=== PATIENT | female | born 1965 | race Caucasian/White ===

== ENCOUNTER 2017-09-01 14:51 | Inpatient (IN) | payer OTHER ==
--- NOTE | 2017-09-01 14:59 | EDPHY ---
HPI/HX/ROS/PE/MDM Narrative: CHIEF COMPLAINT: Altered mental status, lethargic, found down HISTORY OF PRESENT ILLNESS: The patient is a 51 y/o female with a history of T12 paraplegia (in a wheelchair ) arriving via EMS for altered mental status and was last seen normal at least 2 days ago. Her neighbors found her face down in her bed this afternoon and called EMS. EMS reports that she was able to nod yes and no to certain questions. She is currently moaning and complaining of stomach pain. REVIEW OF SYSTEMS: Unable to obtain due to patient's altered mental status. PAST MEDICAL HISTORY: Paraplegia at T12 (wheelchair dependent), chronic constipation, neurogenic bladder, neuropathy, depression SOCIAL HISTORY: Lives in [place]. (Son present at bedside later in patients course.) VITAL SIGNS Reviewed by me. GENERAL: Lethargic, responding to pain, answers to yes and no questions, follows simple commands. Diaper full of feces and urine. HEENT: Atraumatic. Eyes: Anisocoria with left larger than right, crusty yellow discharge from the right eye, no nystagmus. No icterus. Mouth: very dry mucous membranes. No erythema or lesions. Neck: No meningitis. Nontender to palpation. No adenopathy. LUNGS: Diminished breath sounds to auscultation bilaterally, no wheezes, rhonchi or rales. CARDIAC: Tachycardic and regular, no rubs, murmurs or gallops. ABDOMEN: Fullness in lower abdomen from symphysis pubis to above level of umbilicus associated with discomfort. Large midline abdominal incision. Soft, nondistended, bowel sounds normal. BACK: No CVA tenderness. EXTREMITIES: Flaccid paralysis of lower extremities. Mottled skin in lower extremities. No trauma. NEURO: Diminished certified wellness program manager on left, cranial nerves II through XII are intact. SKIN: Pressure ulcer on right rib cage, pressure ulcer starting on left inguinal canal, skin break down on right sacral/buttock area. PSYCHIATRIC: Lethargic, no agitation. Portions of this note were transcribed by a emergency medical technician. I personally performed a history, physical exam, medical decision making, and confirmed accuracy of information the transcribed note. ED Course: The patient is a 51 y/o female with a history of T12 paraplegia (in a wheelchair ) arriving via EMS for altered mental status and was last seen normal at least 2 days ago. On exam she has extremely dry mucous membranes and fullness in her lower abdomen to above the level of the umbilicus associated with discomfort. She is moaning but is able to follow simple commands. She also has diminished certified wellness program manager strength on the left and flaccid paralysis of her lower extremities. In addition to these findings she also has multiple pressure ulcers. EKG, I-Stat, labs, chest x-ray, head and abdominal CT ordered. 1L IV NS given. 1451: I met EMS upon arrival. 1455: Procedure: Limited pelvic ultrasound was conducted for palpable mass. The bladder was visualized and did not reveal an anechoic area outside of the adjacent urinary bladder. Bladder was distended with urine. The study was felt to be negative for free intraperitoneal fluid The procedure was performed by myself, Dr. Javed. 1503: I-Stat preformed, BUN of 136, creatinine 4.6, elevated H&H. 1535: 12-LEAD EKG: Please see the full report in [facility]. My interpretation : Normal sinus rhythm with a rate of 94. Aggressive IV hydration was started. Patient's ALT and AST are elevated, CPK is 963. CT scan of the head and CT scan of the abdomen pelvis demonstrate no acute hemorrhage or traumatic findings. Patient does have some mild hydronephrosis bilaterally perhaps secondary to the patient's neurogenic bladder and reflux. 1656: Consulted with hospitalist service, Dr. Mckee accepts admission of this patient. 1700: Consulted with Dr. Barrios, fundraising specialist, regarding this patient. He is requesting that IR place a temporary catheter so dialysis can begin tonight if needed. 1725: Reassessed patient and discussed imaging and laboratory findings with patient and her son. I have also discussed plan for admission which they are comfortable with. Critical care time spent by me, Dr. Javed, exclusively with this patient was 45 minutes, exclusive of PA time and exclusive of procedures. The organ system at risk was renal and I gave IVF, made arrangements for temporary dialysis catheter to be placed, consulted with Nephrology, and transferred her to the ICU to prevent worsening of the patients condition. MDM: After the history was obtained and physical exam performed, the following differential for the patient's altered mental status was considered included but was not limited to hypoglycemia, electrolyte disturbances, intracranial hemorrhage, tumor, drug or alcohol intoxication, stroke, or TIA. - Data Points Imaging Results: Imaging Impressions Abdomen/Pelvis CT 09/01/17 15:09 Impression: 1. Fecal impaction. 2. Mild bilateral hydronephrosis. The patient reportedly had a large volume of urine in the bladder that drained after the Couch was placed suggesting this is related to reflux. 3. Additional findings as above. Findings discussed with Iva Javed MD, 09/01/2017 at 16:05. Attention: This CT examination is specifically designed to evaluate patients who are clinically suspected of having acute obstructive uropathy. This examination does not use radiographic contrast, and as such, provides only a limited evaluation of the abdomen, pelvis and retroperitoneum. If there is further clinical suspicion for pathological conditions other than obstructive uropathy, a complete CT evaluation of the abdomen and pelvis utilizing intravenous and oral contrast should be considered. Imaging: Discussed imaging studies w/ digester Radiologist, I viewed and interpreted images myself Laboratory Results: Laboratory Results 09/01/17 15:05 09/01/17 15:05 09/01/17 09/01/17 09/01/17 15:14 15:05 15:05 WBC RBC Hgb POC Hgb Hct POC Hct MCV MCH MCHC RDW Plt Count MPV Neut % (Auto) Lymph % (Auto) Bartholomew % (Auto) Eos % (Auto) Baso % (Auto) Nucleat RBC Rel Count Absolute Neuts (auto) Absolute Lymphs (auto) Absolute Monos (auto) Absolute Eos (auto) Absolute Basos (auto) Absolute Nucleated RBC Immature Gran % Immature Gran # PT INR APTT POC Sodium Sodium 158 mEq/L H mEq/L 159 mEq/L H mEq/L (135-145) (135-145) POC Potassium Potassium 4.5 mEq/L mEq/L 4.4 mEq/L mEq/L (3.5-5.2) (3.5-5.2) POC Chloride Chloride 120 mEq/L H mEq/L 121 mEq/L H mEq/L (97-110) (97-110) Carbon Dioxide 14 mEq/l L mEq/l 17 mEq/l L mEq/l (22-31) (22-31) Anion Gap 24 mEq/L H mEq/L 21 mEq/L H mEq/L (8-16) (8-16) POC BUN BUN Pending 135 mg/dL H* mg/dL (7-23) Creatinine 5.1 mg/dL H mg/dL 4.8 mg/dL H mg/dL (0.6-1.0) (0.6-1.0) POC Creatinine Estimated GFR 9 9 Glucose 138 mg/dL H mg/dL 133 mg/dL H mg/dL (70-100) (70-100) POC Glucose Calcium 9.4 mg/dL mg/dL 9.5 mg/dL mg/dL (8.5-10.4) (8.5-10.4) Total Bilirubin 2.9 mg/dL H mg/dL 2.7 mg/dL H mg/dL (0.1-1.4) (0.1-1.4) Conjugated Bilirubin 1.9 mg/dL H mg/dL (0.0-0.5) Unconjugated Bilirubin 0.8 mg/dL mg/dL (0.0-1.1) AST 406 IU/L H IU/L 407 IU/L H IU/L (14-46) (14-46) ALT Pending 2844 IU/L H IU/L (9-52) Alkaline Phosphatase 155 IU/L H IU/L 147 IU/L H IU/L (38-126) (38-126) Creatine Kinase 972 IU/L H IU/L 973 IU/L H IU/L (0-156) (0-156) CK-MB (CK-2) Fraction 2.08 ng/mL ng/mL (0.00-3.19) CK-MB (CK-2) % 0.2 % % (0.0-4.0) Creatine Kinase Interp NEGATIVE (NEGATIVE) Troponin I 0.062 ng/mL H ng/mL 0.058 ng/mL H ng/mL (0.000-0.034) (0.000-0.034) Total Protein 7.6 g/dL g/dL 7.9 g/dL g/dL (6.3-8.2) (6.3-8.2) Albumin 4.3 g/dL g/dL 4.5 g/dL g/dL (3.5-5.0) (3.5-5.0) Lipase 231 IU/L IU/L (23-300) Urine Color JAIDEN Urine Appearance CLEAR Urine pH 5.0 (5.0-7.5) Ur Specific [place] 1.014 (1.002-1.030) Urine Protein NEGATIVE (NEGATIVE) Urine Ketones NEGATIVE (NEGATIVE) Urine Blood 1+ H (NEGATIVE) Urine Nitrate NEGATIVE (NEGATIVE) Urine Bilirubin NEGATIVE (NEGATIVE) Urine Urobilinogen NEGATIVE EU EU (0.2-1.0) Ur Leukocyte Esterase NEGATIVE (NEGATIVE) Urine RBC 1-3 /hpf /hpf (0-3) Urine WBC 1-3 /hpf /hpf (0-3) Ur Epithelial Cells TRACE /lpf /lpf (NONE-1+) Urine Mucus TRACE /lpf /lpf (NONE-1+) Urine Glucose NEGATIVE (NEGATIVE) 09/01/17 09/01/17 09/01/17 15:05 15:02 15:00 WBC 19.00 10^3/uL H 10^3/uL (3.80-9.50) RBC 6.33 10^6/uL H 10^6/uL (4.18-5.33) Hgb 20.2 g/dL H* g/dL (12.6-16.3) POC Hgb 19.0 gm/dL H gm/dL (12.6-16.3) Hct 58.7 % H % (38.0-47.0) POC Hct 56 % H % (38-47) MCV 92.7 fL fL (81.5-99.8) MCH 31.9 pg pg (27.9-34.1) MCHC 34.4 g/dL g/dL (32.4-36.7) RDW 14.6 % % (11.5-15.2) Plt Count 221 10^3/uL 10^3/uL (150-400) MPV 10.6 fL fL (8.7-11.7) Neut % (Auto) 82.2 % H % (39.3-74.2) Lymph % (Auto) 7.2 % L % (15.0-45.0) Bartholomew % (Auto) 9.8 % % (4.5-13.0) Eos % (Auto) 0.0 % L % (0.6-7.6) Baso % (Auto) 0.2 % L % (0.3-1.7) Nucleat RBC Rel Count 0.1 % % (0.0-0.2) Absolute Neuts (auto) 15.60 10^3/uL H 10^3/uL (1.70-6.50) Absolute Lymphs (auto) 1.37 10^3/uL 10^3/uL (1.00-3.00) Absolute Monos (auto) 1.87 10^3/uL H 10^3/uL (0.30-0.80) Absolute Eos (auto) 0.00 10^3/uL L 10^3/uL (0.03-0.40) Absolute Basos (auto) 0.04 10^3/uL 10^3/uL (0.02-0.10) Absolute Nucleated RBC 0.02 10^3/uL H 10^3/uL (0-0.01) Immature Gran % 0.6 % % (0.0-1.1) Immature Gran # 0.12 10^3/uL H 10^3/uL (0.00-0.10) PT 15.6 SEC H SEC (12.0-15.0) INR 1.22 H (0.83-1.16) APTT 26.0 SEC SEC (23.0-38.0) POC Sodium 155 mEq/L H mEq/L (135-145) Sodium POC Potassium 4.2 mEq/L mEq/L (3.3-5.0) Potassium POC Chloride 124 mEq/L H mEq/L (97-110) Chloride Carbon Dioxide Anion Gap POC BUN 136 mg/dL H* mg/dL (7-23) BUN Creatinine POC Creatinine 4.6 mg/dL H mg/dL (0.6-1.0) Estimated GFR Glucose POC Glucose 145 mg/dL H mg/dL (70-100) Calcium Total Bilirubin Conjugated Bilirubin Unconjugated Bilirubin AST ALT Alkaline Phosphatase Creatine Kinase CK-MB (CK-2) Fraction CK-MB (CK-2) % Creatine Kinase Interp Troponin I Total Protein Albumin Lipase Urine Color Urine Appearance Urine pH Ur Specific [place] Urine Protein Urine Ketones Urine Blood Urine Nitrate Urine Bilirubin Urine Urobilinogen Ur Leukocyte Esterase Urine RBC Urine WBC Ur Epithelial Cells Urine Mucus Urine Glucose Medications Given: Senna/Docusate Sodium (Senokot-S) 1 - 2 tab PO BID RYAN PRN Reason: Protocol Stop: 02/28/18 20:59 Last Admin: 09/01/17 21:27 Dose: Not Given Discontinued Medications Hydromorphone HCl (Dilaudid) 1 mg IVP EDNOW ONE Stop: 09/01/17 16:42 Last Admin: 09/01/17 16:44 Dose: 1 mg Sodium Chloride (Ns) 1,000 mls @ 0 mls/hr IV ONCE ONE; Wide Open PRN Reason: Protocol Stop: 09/01/17 15:09 Last Admin: 09/01/17 15:00 Dose: 1,000 mls Sodium Chloride (Ns) 1,000 mls @ 0 mls/hr IV ONCE ONE; Wide Open PRN Reason: Protocol Stop: 09/01/17 16:42 Last Admin: 09/01/17 16:44 Dose: 1,000 mls Sodium Chloride (Ns) 1,000 mls @ 3,000 mls/hr IV ONCE ONE Stop: 09/01/17 18:36 Last Admin: 09/01/17 18:20 Dose: 1,000 mls Point of Care Test Results: 09/01/17 15:02 POC Sodium 155 H POC Potassium 4.2 POC Chloride 124 H POC BUN 136 H* POC Creatinine 4.6 H POC Glucose 145 H General Time Seen by Provider: 09/01/17 14:58 Initial Vital Signs: Initial Vital Signs Temperature (C) 37.8 C 09/01/17 14:51 Heart Rate 103 H 09/01/17 14:51 Respiratory Rate 18 09/01/17 14:51 Blood Pressure 123/88 H 09/01/17 14:51 O2 Sat (%) 97 09/01/17 14:51 O2 Delivery Mode Nasal Cannula O2 (L/minute) 6 Allergies/Adverse Reactions: Unable to Assess Allergy (Unverified 09/01/17 14:57) Home Medications: Medication Instructions Recorded Atenolol [Tenormin 25 mg (*)] 25 mg PO DAILY 09/01/17 Gabapentin [Neurontin 400 MG (*)] 800 mg PO TID 09/01/17 HYDROmorphone HCL [Dilaudid 2 mg 2 mg PO Q4H PRN 09/01/17 (*)] Oxybutynin Chloride [Ditropan 5mg 5 mg PO TID 09/01/17 (RX)] Zolpidem Tartrate [Ambien] 10 mg PO HS PRN 09/01/17 Departure - Departure Disposition: [facility] Inpatient Acute Clinical Impression: Elevated troponin Altered mental status Qualifiers: Altered mental status type: unspecified Qualified Code(s): R41.82 - Altered mental status, unspecified Acute renal failure Qualifiers: Acute renal failure type: unspecified Qualified Code(s): N17.9 - Acute kidney failure, unspecified Condition: Fair Report Scribed for: Iva Javed Report Scribed by: Tabby Ly Date of Report: 09/01/17 Time of Report: 14:59
[2017-09-01] MEDS ORDERED: NS 1,000 ML IV ONE ×3 (15:08→18:17)
[2017-09-01 15:13] LABS: PLATELET COUNT 221 10^3/uL (150-400)
[2017-09-01 15:20] LABS: CREATINE KINASE 973 IU/L (0-156)
--- NOTE | 2017-09-01 15:36 | CPEKG ---
Heart Rate: 94 RR Interval: 638 P-R Interval: 132 QRSD Interval: 74 QT Interval: 348 QTC Interval: 436 P [place]: 76 QRS [place]: 72 T Wave [place]: -88 EKG Severity - ABNORMAL ECG - EKG Impression: SINUS RHYTHM EKG Impression: RIGHT ATRIAL ABNORMALITY EKG Impression: NONSPECIFIC T ABNORMALITIES, DIFFUSE LEADS Electronically Signed By: Iva Javed 01-Sep-2017 21:37:37
--- NOTE | 2017-09-01 16:06 | ASMTLACE ---
BRAYAN Acuity / Level of Answers: Yes Care: Did the patient have an inpatient admission? Comorbidities - select Answers: Opioid dependence all that apply / Chronic pain Other Notes: Paraplegic, neurogenic bladder, MS # of Emergency department Answers: 1-2 visits in the last 6 months Social determinants Answers: History of substance abuse (ETOH, street drugs, prescription drugs, etc.) Mental health diagnosis (anxiety, depression, pers onality disorders, etc.) Score: 15 Date Signed: 09/01/2017 04:05 PM Electronically Signed By:Meme Velez RN
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
[2017-09-01] MEDS ORDERED: HYDROmorphONE/DILAUDID 2 MG/ML INJ ONE (16:40)
[2017-09-01] MEDS ORDERED: HYDROmorphONE/DILAUDID 1 MG/ML INJ IVP ONE (16:41)
[2017-09-01 17:43] LABS: INR 1.22 (0.83-1.16); PROTIME(PATIENT) 15.6 SEC (12.0-15.0)
--- NOTE | 2017-09-01 18:26 | PDGENHP ---
History and Physical - Chief Complaint AMS - History of Present Illness This is a 51 yo female with a hx of t12 paraplegia who was not seen for 2 day and found to be down on the floor. Details of how this occurred are not clear. She was not able to provide a ROS in the E.D. but appears to be clearing currently. In the E.D, she was found to have multiorgan injuries with e/o of rhabdo, Acute renal failure, transaminitis and respiratory failure. She has been given 2 L of NS in the E.D and she is starting to make urine. She is still very dehydrated. Her resp status is improving. She does not have an clear source of infection. She has not had a fever. She does have Leukocytosis. Bicar is down to 17. Na is elevated at 159. WBC is 19, Hgb is 20.2. ROS: limited: denies any resp issues, no cough, no sob. Denies cp. denies abd pain. PMHx Paraplegia at T12 (wheelchair dependent), chronic constipation, neurogenic bladder, neuropathy, depression SOCIAL HISTORY: Son at bedside, lives in [place]. Hx of polysubstance abuse, daily tobacco, unclear if daily ETOH. Not actively in WD FMhx: NC Data/Labs: Per above CXR: no acute infiltrates CT Head: no acute findings CT Abd/Pelvis: Fecal Impaction, Bilateral Hydronephrosis History Information - Allergies/Home Medication List Allergies/Adverse Reactions: Unable to Assess Allergy (Unverified 09/01/17 14:57) Home Medications: HYDROmorphone HCL [Dilaudid 2 mg (*)] 2 mg PO Q4H PRN 09/01/17 [Last Taken Unknown] Zolpidem Tartrate [Ambien] 10 mg PO HS PRN 09/01/17 [Last Taken Unknown] I have personally reviewed and updated: medical history, social history - Social History Smoking Status: Unknown if ever smoked Review of Systems Review of Systems: ROS: 10pt was reviewed & negative except for what was stated in HPI & below Physical Exam Physical Exam: Temp Pulse Resp BP Pulse Ox 36.6 C 72 16 129/61 H 98 09/01/17 17:51 09/01/17 18:00 09/01/17 18:00 09/01/17 18:00 09/01/17 18:00 O2 (L/minute) 2 Constitutional: no apparent distress Eyes: PERRL, EOMI Ears, Nose, Mouth, Throat: dry mucous membranes Cardiovascular: regular rate and rhythym, No edema Respiratory: no respiratory distress, no rales or rhonchi, clear to auscultation Gastrointestinal: soft, non-tender abdomen Genitourinary: no bladder fullness Skin: warm Neurologic: No AAOx3 Psychiatric: encephalopathic, No interacting appropriately Lymph, Heme, Immunologic: No petechiae Lab Data & Imaging Review 09/01/17 15:05 09/01/17 15:05 WBC 19.00 10^3/uL (3.80-9.50) H 09/01/17 15:05 RBC 6.33 10^6/uL (4.18-5.33) H 09/01/17 15:05 Hgb 20.2 g/dL (12.6-16.3) H* 09/01/17 15:05 POC Hgb 19.0 gm/dL (12.6-16.3) H 09/01/17 15:02 Hct 58.7 % (38.0-47.0) H 09/01/17 15:05 POC Hct 56 % (38-47) H 09/01/17 15:02 MCV 92.7 fL (81.5-99.8) 09/01/17 15:05 MCH 31.9 pg (27.9-34.1) 09/01/17 15:05 MCHC 34.4 g/dL (32.4-36.7) 09/01/17 15:05 RDW 14.6 % (11.5-15.2) 09/01/17 15:05 Plt Count 221 10^3/uL (150-400) 09/01/17 15:05 MPV 10.6 fL (8.7-11.7) 09/01/17 15:05 Neut % (Auto) 82.2 % (39.3-74.2) H 09/01/17 15:05 Lymph % (Auto) 7.2 % (15.0-45.0) L 09/01/17 15:05 [place] % (Auto) 9.8 % (4.5-13.0) 09/01/17 15:05 Eos % (Auto) 0.0 % (0.6-7.6) L 09/01/17 15:05 Baso % (Auto) 0.2 % (0.3-1.7) L 09/01/17 15:05 Nucleat RBC Rel Count 0.1 % (0.0-0.2) 09/01/17 15:05 Absolute Neuts (auto) 15.60 10^3/uL (1.70-6.50) H 09/01/17 15:05 Absolute Lymphs (auto) 1.37 10^3/uL (1.00-3.00) 09/01/17 15:05 Absolute Monos (auto) 1.87 10^3/uL (0.30-0.80) H 09/01/17 15:05 Absolute Eos (auto) 0.00 10^3/uL (0.03-0.40) L 09/01/17 15:05 Absolute Basos (auto) 0.04 10^3/uL (0.02-0.10) 09/01/17 15:05 Absolute Nucleated RBC 0.02 10^3/uL (0-0.01) H 09/01/17 15:05 Immature Gran % 0.6 % (0.0-1.1) 09/01/17 15:05 Immature Gran # 0.12 10^3/uL (0.00-0.10) H 09/01/17 15:05 PT 15.6 SEC (12.0-15.0) H 09/01/17 15:00 INR 1.22 (0.83-1.16) H 09/01/17 15:00 APTT 26.0 SEC (23.0-38.0) 09/01/17 15:00 ABG Lactic Acid 2.2 mmol/L (0.5-1.6) H 09/01/17 15:25 VBG Lactic Acid 2.1 mmol/L (0.7-2.1) 09/01/17 18:00 POC Sodium 155 mEq/L (135-145) H 09/01/17 15:02 Sodium 159 mEq/L (135-145) H 09/01/17 15:05 POC Potassium 4.2 mEq/L (3.3-5.0) 09/01/17 15:02 Potassium 4.4 mEq/L (3.5-5.2) 09/01/17 15:05 POC Chloride 124 mEq/L (97-110) H 09/01/17 15:02 Chloride 121 mEq/L (97-110) H 09/01/17 15:05 Carbon Dioxide 17 mEq/l (22-31) L 09/01/17 15:05 Anion Gap 21 mEq/L (8-16) H 09/01/17 15:05 POC BUN 136 mg/dL (7-23) H* 09/01/17 15:02 BUN 135 mg/dL (7-23) H* 09/01/17 15:05 Creatinine 4.8 mg/dL (0.6-1.0) H 09/01/17 15:05 POC Creatinine 4.6 mg/dL (0.6-1.0) H 09/01/17 15:02 Estimated GFR 9 09/01/17 15:05 Glucose 133 mg/dL (70-100) H 09/01/17 15:05 POC Glucose 145 mg/dL (70-100) H 09/01/17 15:02 Calcium 9.5 mg/dL (8.5-10.4) 09/01/17 15:05 Total Bilirubin 2.7 mg/dL (0.1-1.4) H 09/01/17 15:05 Conjugated Bilirubin 1.9 mg/dL (0.0-0.5) H 09/01/17 15:05 Unconjugated Bilirubin 0.8 mg/dL (0.0-1.1) 09/01/17 15:05 AST 407 IU/L (14-46) H 09/01/17 15:05 ALT 2844 IU/L (9-52) H 09/01/17 15:05 Alkaline Phosphatase 147 IU/L (38-126) H 09/01/17 15:05 Creatine Kinase 973 IU/L (0-156) H 09/01/17 15:05 CK-MB (CK-2) Fraction 2.08 ng/mL (0.00-3.19) 09/01/17 15:05 CK-MB (CK-2) % 0.2 % (0.0-4.0) 09/01/17 15:05 Creatine Kinase Interp NEGATIVE (NEGATIVE) 09/01/17 15:05 Troponin I 0.058 ng/mL (0.000-0.034) H 09/01/17 15:05 Total Protein 7.9 g/dL (6.3-8.2) 09/01/17 15:05 Albumin 4.5 g/dL (3.5-5.0) 09/01/17 15:05 Lipase 231 IU/L (23-300) 09/01/17 15:05 Urine Color JAIDEN 09/01/17 15:14 Urine Appearance CLEAR 09/01/17 15:14 Urine pH 5.0 (5.0-7.5) 09/01/17 15:14 Ur Specific [place] 1.014 (1.002-1.030) 09/01/17 15:14 Urine Protein NEGATIVE (NEGATIVE) 09/01/17 15:14 Urine Ketones NEGATIVE (NEGATIVE) 09/01/17 15:14 Urine Blood 1+ (NEGATIVE) H 09/01/17 15:14 Urine Nitrate NEGATIVE (NEGATIVE) 09/01/17 15:14 Urine Bilirubin NEGATIVE (NEGATIVE) 09/01/17 15:14 Urine Urobilinogen NEGATIVE EU (0.2-1.0) 09/01/17 15:14 Ur Leukocyte Esterase NEGATIVE (NEGATIVE) 09/01/17 15:14 Urine RBC 1-3 /hpf (0-3) 09/01/17 15:14 Urine WBC 1-3 /hpf (0-3) 09/01/17 15:14 Ur Epithelial Cells TRACE /lpf (NONE-1+) 09/01/17 15:14 Urine Mucus TRACE /lpf (NONE-1+) 09/01/17 15:14 Urine Glucose NEGATIVE (NEGATIVE) 09/01/17 15:14 Assessment & Plan Assessment: #Acute Metabolic Encephalopathy #Rhabdomyolysis, Acute Renal Failure, Severe Dehydration #Acute Hypoxic Respiratory Failure #Transaminitis, likely due to decreased perfusion/hypovolemia #Leukocytosis with no e/o acute infection #Lactic Acidosis, mild #Elevated Troponin, likely due to strain #Polycythemia #Bilateral Hydronephrosis #Fecal Impaction #Paraplegia, neurogenic bladder and bowel #Major depression disorder #tobacco abuse disorder #Hx of polysubstance abuse, unclear if daily ETOH use Plan: ICU admission Nephrology to perform dialysis today IR placing catheter She is making urine She needs more fluid, giving her another Liter as bolus now and reassess Pain mgm Clear Liquid Diet Stool regimen Repeat Lactic Acid. Check procalcitonin. NO abx for now, dont have a clear source Cont Couch trop elevation likely due to strain. Check TTE, serial trops. EKG reviewed is ok. No signs of WD at this time check INR to assist determine liver function I's/O's
[2017-09-01] MEDS ORDERED: ACETAMINOPHEN 325 MG TAB PO PRN (18:44)
[2017-09-01] MEDS ORDERED: ONDANSETRON DISINTEGRATING 4 MG TAB PO PRN (18:44)
[2017-09-01] MEDS ORDERED: ONDANSETRON 4 MG/2 ML VIAL IVP PRN (18:44)
[2017-09-01] MEDS ORDERED: HYDROmorphONE/DILAUDID 2 MG TAB PO PRN (18:46)
[2017-09-01] MEDS ORDERED: LACTULOSE 20 GM/30 ML UDCUP PO PRN (18:46)
[2017-09-01] MEDS ORDERED: POLYETHYLENE GLYCOL 3350 17 GM PKT PO PRN (18:46)
[2017-09-01] MEDS ORDERED: LIDOCAINE 1% 300 MG/30 ML SDV ONE (19:48)
[2017-09-01] MEDS ORDERED: HEPARIN 50,000 UNIT/10 ML VIAL ONE (19:49)
--- NOTE | 2017-09-01 20:40 | PDRADPN ---
Radiology Procedure Note Date of Procedure: 09/01/17 Radiologist: Giovani Oconnell Anesthesia: Local (Specify) Pre-op Diagnosis: renal failure Post-op Diagnosis: same Indication: emergent dialysis Procedure: NANCY Smith Finding(s): tip HD cath at cavoatrial junction. ok to use Inf/Abcess present in the surg proc area at time of surgery?: No EBL: Minimal Complications: none
[2017-09-01] MEDS: SENNOSIDES/DOCUSATE SODIUM TAB PO SCH (21:27)
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
[2017-09-01 22:11] LABS: HEPATITIS B SURFACE ANTIGEN NEGATIVE (NEGATIVE)
[2017-09-01 22:16] LABS: CREATINE KINASE 972 IU/L (0-156)
[2017-09-01 22:28] LABS: HEPATITIS C ANTIBODY TOTAL NEGATIVE (NEGATIVE)
[2017-09-01] MEDS: HYDROmorphone HCL/NS 0.5 MG/ML SYR IVP PRN (23:01)
[2017-09-01 23:05] LABS: CREATINE KINASE 953 IU/L (0-156)
[2017-09-01] MEDS ORDERED: LORazepam 2 MG/ML INJ ONE (23:25)
[2017-09-01] MEDS ORDERED: LORazepam 2 MG/ML INJ IV PRN (23:26)
[2017-09-02] MEDS: NS 1,000 ML IV SCH ×2 (03:56)
[2017-09-02 04:19] LABS: PLATELET COUNT 128 10^3/uL (150-400)
[2017-09-02] MEDS: HYDROmorphone HCL/NS 0.5 MG/ML SYR IVP PRN ×4 (06:04→18:46)
--- NOTE | 2017-09-02 08:25 | PDMN ---
Medical Necessity Medical necessity: M326 acute renal failure: A-2 days: serum Cr. > 4 ( 5.1) , AMS, acute hypoxic resp failure, transminitis, leukocytosis, lactic acidosis, elevated trop., polycythemia, bilat. hydronephrosis, fecal impaction, paraplegia - neurogenic bladder and bowel, hx ETOH abuse, > 2 midnights anticipated for med nec monitoring, eval and tx.
--- NOTE | 2017-09-02 09:33 | CPEKG ---
Heart Rate: 64 RR Interval: 938 P-R Interval: 132 QRSD Interval: 76 QT Interval: 496 QTC Interval: 512 P Dobson: 78 QRS Dobson: 71 T Wave Dobson: -47 EKG Severity - ABNORMAL ECG - EKG Impression: SINUS RHYTHM EKG Impression: NONSPECIFIC T ABNORMALITIES, DIFFUSE LEADS EKG Impression: PROLONGED QT INTERVAL EKG Impression: No significant change from September 01, 2017 Electronically Signed By: Bill Larkin 02-Sep-2017 10:39:49
[2017-09-02] MEDS: SENNOSIDES/DOCUSATE SODIUM TAB PO SCH (10:11)
--- NOTE | 2017-09-02 11:05 | ECHO ---
[email or web address] [address] Main: [phone] Fax: Transthoracic Echocardiogram Name: ALVARO ANDERSON MR#: [id number] Study Date: 09/02/2017 Study Time: 07:40 AM Date of : 1965 Age: 51 year(s) Height: ( ) Weight: ( ) BSA: Gender: Female Examination: Echo Indication: Elevated troponin Image Quality: Technically Difficult Contrast: Requested by: Juvenal Mckee BP: 114 mmHg/71 mmHg Heart Rate: Rhythm: Indication: Elevated troponin Procedure Staff Senior Informatica Developer: Carole Rivas [facility] Reading Physician: Romeo Bolanos MD Requesting Provider: Conclusions: Normal size left ventricle. No LV hypertrophy. Normal global systolic LV function. The ejection fraction is visually estimated to be 60 %. No regional wall motion abnormality. Normal size right ventricle. Normal RV function. The left atrium is normal in size. The right atrium is normal in size. The mitral valve is normal in appearance and function. Mild mitral valve regurgitation is present. No mitral stenosis is present. The aortic valve is normal in appearance and function. There is no aortic valve regurgitation. No aortic valve stenosis is present. The tricuspid valve is normal in appearance and function. Mild tricuspid regurgitation is present. The pulmonary artery pressure is normal. The pulmonic valve is normal in appearance and function. There is no pulmonic regurgitation seen. Normal size aortic root measuring 2.9 cm. Measurements: Chambers Valvular Assessment AV/MV Valvular Assessment TV/PV Normal Normal Normal Name Value Range Name Value Range Name Value Range Ao Ronel (2D): 2.9 cm (1.4 cm-2.6 AV meanP mmHg ( - ) PV Vmax: 0.79 m/s (0.6 m/s-0.9 cm) VAL (VTI): 1.9 cm ( - ) m/s) MV E Vmax: 0.84 m/s ( - ) PV PGmax: 2 mmHg ( - ) Patient: ALVARO ANDERSON Study Date: 09/02/2017 Page 1 of 3 07:40 AM IVSd (2D): 0.6 cm (0.6 cm-1.1 MV A Vmax: 0.68 m/s ( - ) cm) MV E/A: 1.24 ( - ) LVDd (2D): 3.6 cm (3.9 cm-5.3 MV PHT: 0.067 s ( - ) cm) MVA (PHT): 3.3 s ( - ) LVDs (2D): 2.3 cm (2.1 cm-4 cm) LVPWd (2D): 0.7 cm ( - ) LVOTd 1.7 cm 1.7 cm mm LVEF (BP): 69 % (>=55 %) Visual EF: 60 % RVDd(2D): 1.9 cm (1.9 cm-3.8 cmmm) Continued Measurements: Chambers Valvular Assessment AV/MV Valvular Assessment TV/PV Name Value Name Value Name Value LADs: 1.9 cm MV DecTime: 222 m/s CVP (est.): 5 mmHg LADs Lon.8 cm MV E' Septal: 0.07 m/s LA Area: 8.2 cm2 MV E/E' Septal: 12.70 MV E/E' Lateral: 8.20 Additional Vessels Name Value Inferior Vena Cava: 0.8 cm Findings: Left Ventricle: Normal size left ventricle. No LV hypertrophy. Normal global systolic LV function. The ejection fraction is visually estimated to be 60 %. No regional wall motion abnormality. Normal diastolic LV function. Right Ventricle: Normal size right ventricle. Normal RV function. Left Atrium: The left atrium is normal in size. Right Atrium: The right atrium is normal in size. Mitral Valve: The mitral valve is normal in appearance and function. Mild mitral valve regurgitation is present. No mitral stenosis is present. Aortic Valve: The aortic valve is normal in appearance and function. There is no aortic valve regurgitation. No aortic valve stenosis is present. Tricuspid Valve: The tricuspid valve is normal in appearance and function. Mild tricuspid regurgitation is present. The pulmonary artery pressure is normal. Pulmonic Valve: The pulmonic valve is normal in appearance and function. There is no pulmonic regurgitation seen. Aorta: The aorta is normal. Normal size aortic root measuring 2.9 cm. IVC: The IVC is normal sized. Pericardium: No pericardial effusion. No pleural effusion. Exam Comments: Very difficult exam, patient supine, limited windows. Patient: ALVARO ANDERSON Study Date: 09/02/2017 Page 2 of 3 07:40 AM (No Signature Object) Patient: ALVARO ANDERSON Study Date: 09/02/2017 Page 3 of 3 07:40 AM [id number]
--- NOTE | 2017-09-02 14:03 | WOCRNPDOC ---
[facility] Advanced Assessment Note - Skin Integrity Problem, Advanced Assess Right Buttock Pressure Injury Dressing Type: Allevyn Life Exudate Amount: Scant Exudate Color: Clear Exudate Characteristic(s): Serous Integumentary Issue Intervention: Dressing Changed, Dressing Initialed & Dated Nan Wound Tissue: Blanching, Erythema Nan Wound Swelling: Mild Wound Bed Color: Purple, Red Wound Bed Constitution: Red/Grampian - Non Granular Tissue, De-roofed Serous Blister Site Measurement - Head-to-Toe Length X Width X Depth (cm): 6cmx4.5cmx0.1cm Pressure Injury Stage: Deep Tissue Injury (DTI) Pressure Injury Present on Admit: Yes (Hospitalist notified) Skin Integrity Problem Comment: De-roofed blister on R buttock w/ partial- thickness tissue loss evident. However, underlying tissue is dark red/purple in color, concerning for deep tissue injury. There is a larger area of blanching erythema periwound, minimal swelling. Pressure-relieving interventions initiated by nursing, and dressing applied. Right Elbow Pressure Injury Dressing Type: Open to Air Exudate Color: Yellow Exudate Characteristic(s): Dried Nan Wound Tissue: Intact Nan Wound Swelling: None Wound Bed Color: Brown, Yellow Wound Bed Constitution: Adhered Slough Site Measurement - Head-to-Toe Length X Width X Depth (cm): 1cmx1.1cmx0.1cm Pressure Injury Stage: Unstageable Pressure Injury Present on Admit: Yes Skin Integrity Problem Comment: Wound over R elbow, 100% dried, adhered slough, appearance consistent w/ unstageable pressure injury. Periwound skin intact. Will have nursing apply dressing w/ Hydrogel to initiate autolysis of slough. Left Heel Pressure Injury Integumentary Issue Intervention: Dressing Applied, Dressing Initialed & Dated Nan Wound Tissue: Intact Nan Wound Swelling: None Wound Bed Color: Purple, Yellow Wound Bed Constitution: Intact Sanguineous Blister Site Odor: None Site Measurement - Head-to-Toe Length X Width X Depth (cm): 5cmx4.3cmx blister Pressure Injury Stage: Deep Tissue Injury (DTI) Pressure Injury Present on Admit: Yes Skin Integrity Problem Comment: Intact serosanguinous blister on L heel, appearance consistent w/ deep tissue injury. Underlying tissue appearas dark purple, indicating full-thickness injury. Protective foam dressing placed. Will have nursing float heels to relieve pressure. Right Lower Leg Pressure Injury Dressing Type: Allevyn Life (x3) Dressing Description: Intact Exudate Amount: None Integumentary Issue Intervention: Visualized Under Dressing Nan Wound Tissue: Intact Nan Wound Swelling: None Wound Bed Color: Purple, Red Site Measurement - Head-to-Toe Length X Width X Depth (cm): R lateral/proximal lower le.[id number]. R lateral/medial lower le.2cmx2.5yvm7am. R lateral/distal lower le.3cmx1.5x0cm Pressure Injury Stage: Deep Tissue Injury (DTI) Pressure Injury Present on Admit: Yes Skin Integrity Problem Comment: Three discrete pressure injuries noted on R lateral lower leg, all of them consistent in appearance w/ deep tissue injuries. Overlying skin is currently intact, but feels soft and boggy to the touch. Periwound skin is intact. All wounds re-covered w/ existing Allevyn dressings, and patient repositioned on L side. Coccyx Pressure Injury Dressing Type: Open to Air Exudate Amount: None Nan Wound Tissue: Intact Nan Wound Swelling: None Wound Bed Color: Red Site Odor: None Site Measurement - Head-to-Toe Length X Width X Depth (cm): 2cmx0.0taz9ve Pressure Injury Stage: Stage 1 Pressure Injury Present on Admit: Yes Skin Integrity Problem Comment: Linear, non-blanching erythema directly over coccyx, stage 1 pressure injury. No swelling noted, and periwound skin is intact. Will have nursing off-load area and turn patient side to side q2 hrs. Right Flank Pressure Injury Dressing Type: Allevyn Life Dressing Description: Clean/Dry, Intact Exudate Amount: None Integumentary Issue Intervention: Visualized Under Dressing Nan Wound Tissue: Intact Nan Wound Swelling: None Wound Bed Color: Purple Site Measurement - Head-to-Toe Length X Width X Depth (cm): 11.5cmx6.4jfx3tc Pressure Injury Stage: Deep Tissue Injury (DTI) Pressure Injury Present on Admit: Yes Skin Integrity Problem Comment: Area of dark purple, intact skin over patient's R flank, consistent in appearance w/ deep tissue injury. There are areas of induration medially, indicating full-thickness tissue damage. Re-covered site w / Allevyn and repostioned patient on L side. Right Gluteal Folds Pressure Injury Dressing Type: Allevyn Life Exudate Amount: None Integumentary Issue Intervention: Dressing Changed, Dressing Initialed & Dated Nan Wound Tissue: Blanching, Erythema Nan Wound Swelling: Mild Wound Bed Color: Purple Site Measurement - Head-to-Toe Length X Width X Depth (cm): 3.2cmx2.5ivy8uh Pressure Injury Stage: Deep Tissue Injury (DTI) Pressure Injury Present on Admit: Yes Skin Integrity Problem Comment: Dark purple, circular-shaped wound on patient's R gluteal fold where her buttock meets her posterior R thigh. Appearance consistent with deep tissue injury, induration noted medially. Periwound skin is intact. Site covered w/ dressing, and patient repositioned on L side. Left First Toe Pressure Injury Dressing Type: Open to Air Nan Wound Tissue: Intact Wound Bed Constitution: Intact Serous Filled Blister Pressure Injury Stage: Stage 2 Pressure Injury Present on Admit: Yes Skin Integrity Problem Comment: Two intact, serous-filled blisters noted on plantar aspect of L great toe, consistent w/ stage 2 pressure injuries. Periwound skin is intact and blanching. Will leave CHIQUITA, have nursing monitor.
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
[2017-09-02] MEDS ORDERED: D5W 1,000 ML IV SCH (14:45)
--- NOTE | 2017-09-02 15:19 | ASMTCMCOM ---
CM Note CM Note Notes: Spoke with Anahi from [facility] and gave her Dr. Jacob's number for a Dr. to Faxed her patient's labs, H&P, medications and therapy evals. Patient will be transferred to the [facility] today. Anahi's fax [phone]. Waiting on a transport time. CM will follow. Date Signed: 09/02/2017 03:18 PM Electronically Signed By:Alysia Crane LCSW
--- NOTE | 2017-09-02 15:57 | GDS ---
[f rep st] TRANSFER SUMMARY DISCHARGE DIAGNOSIS: 1. Metabolic encephalopathy, resolved. 2. Acute kidney injury, most likely due to severe dehydration and hemodynam[facility]. 3. Dehydration and hypernatremia. 4. Multiple pressure sores present on admission. 5. History of neurogenic bowel and bladder with chronic constipation, fecal impaction, and rectal pa in. 6. Mild rhabdomyolysis. 7. Resolved acute hypoxic respiratory failure. 8. Transaminitis. 9. Mild lactic acidosis. 10. Mild troponin elevation. 11. Bilateral hydronephrosis. 12. T12 paraplegia. 13. Major depressive disorder. 14. Tobacco abuse. 15. History of polysubstance abuse. CONSULTANTS: Dr. Barrios, Nephrology. HOSPITAL COURSE AND STAY: 1. Severe dehydration and acute kidney injury: This patient presented to the hospital on 09/01/2017 confused and was found to be in acute renal failure with a creatinine of 4.8 and BUN of 135. Dr. Mohan butler from [facility] was consulted and a temporary dialysis catheter was placed. She was s ubsequently dialyzed. On hospital day #1, her renal function has greatly improved from a creatinine of 5.1, down to 1.7. She is making urine. She continues to be hypernatremic with a sodium of 154. Her mentation has improved. 2. Mild troponin elevation: The patient presented with a troponin of 0.062 which has been relativel y flat and has slightly decreased to 0.042 on day of dictation. An echocardiogram was done on admiss ion which showed a normal left ventricular ejection fraction of 60% with no regional wall motion abno rmalities. The patient has not complained of any chest pain. I suspect this indeterminate troponin i s most likely related to her acute kidney injury. She has not had any reports of chest pain. 3. Multiple pressure ulcers: The patient was noted to have multiple pressure ulcers on admission whi ch included a right buttock pressure ulcer that is described as a deep tissue injury, right elbow pre ssure injury that was unstageable, left heel pressure injury as described as a deep tissue injury, ri ght lower leg pressure injury that is also a deep tissue injury, a stage 1 coccyx pressure injury, ri ght flank deep tissue injury, right gluteal fold pressure injury, left 1st toe stage 2 pressure injur y. The patient was assessed by our wound care team. Refer to their notes for the treatment plan. PERTINENT LABS AND STUDIES DONE THIS HOSPITAL STAY: A CT of the abdomen and pelvis done 09/01/2017 s howed a fecal impaction and mild bilateral hydronephrosis. Please see report for full details. Echocardiogram done 09/01/2017, refer to report. PHYSICAL EXAM ON DAY OF DISCHARGE: Please refer to progress note in [facility]. DISCHARGE MEDICATIONS: Please refer to discharge medication reconciliation. For full details, was a preliminary list. The patient presented on 800 mg of Neurontin 3 times a day which has been decreased to 300 mg p.o. th ree times daily given her renal function. Her other home medications have been continued. TRANSFER INSTRUCTIONS: [facility]. At the time of this dictation, the patient is hemodynamically stable. I have discussed the case with Dr. Stephon Caon who accepts attending responsibility for this patient. Greater than 30 minutes were spent on the transfer of this patient and provided direct patient care. /[id number]/MODL
[2017-09-02] MEDS ORDERED: GABAPENTIN 300 MG CAP PO SCH (16:00)
[2017-09-02] MEDS ORDERED: GABAPENTIN 400 MG CAP PO SCH (16:00)
[2017-09-02] MEDS ORDERED: OXYBUTYNIN CHLORIDE 5 MG TAB PO SCH (16:00)
[2017-09-02 16:35] VITALS: BP 90/51
[2017-09-03] MEDS ORDERED: ATENOLOL 25 MG TAB PO SCH (09:00)
== END 2017-09-02 19:05 | disposition short-term general hospital (02) | DRG 682 ==
LOC: EDBD 14:51 → F2N 17:36
PROVIDERS: ADMIT Family Medicine; ATTEND Family Medicine
PROC: 02HV33Z Insertion of Infusion Device into Superior Vena Cava, Percutaneous Approach (ICD-10-PCS; principal; 2017-09-01)
PROC: 5A1D70Z Performance of Urinary Filtration, Intermittent, Less than 6 Hours Per Day (ICD-10-PCS; 2017-09-01)
DX: N17.9 Acute kidney failure, unspecified (principal); E86.0 Dehydration; G93.41 Metabolic encephalopathy; J96.01 Acute respiratory failure with hypoxia; E87.0 Hyperosmolality and hypernatremia; M62.82 Rhabdomyolysis; G82.20 Paraplegia, unspecified; E87.2 Acidosis; N31.9 Neuromuscular dysfunction of bladder, unspecified; G62.9 Polyneuropathy, unspecified; F32.9 Major depressive disorder, single episode, unspecified; K56.41 Fecal impaction; D75.1 Secondary polycythemia; N13.30 Unspecified hydronephrosis; L89.319 Pressure ulcer of right buttock, unspecified stage; L89.010 Pressure ulcer of right elbow, unstageable; L89.629 Pressure ulcer of left heel, unspecified stage; L89.899 Pressure ulcer of other site, unspecified stage; L89.151 Pressure ulcer of sacral region, stage 1; L89.892 Pressure ulcer of other site, stage 2; R94.5 Abnormal results of liver function studies; R79.89 Other specified abnormal findings of blood chemistry; Z72.0 Tobacco use; Z99.3 Dependence on wheelchair
CPT/HCPCS: 82947-QW; 92610-GN; 96374; 97166-GO; C1750; G0472; G8987-GO-CL; G8988-GO-CI; G8996-GN-CI; G8997-GN-CI; G8998-GN-CI; J1170; J1644; J2060